=== PATIENT | female | born 1960 | race Two or more races ===

== ENCOUNTER → 2016-10-26 | Outpatient (CLI) | payer OTHER ==
[~2016-10-26] MED LIST: LIVALO4 MG PO; VALSARTAN-HCTZ1 EACH PO
== END | disposition short-term general hospital (02) ==
LOC: CLORTH 07:41
DX: M17.11 Unilateral primary osteoarthritis, right knee (principal); D36.13 Benign neoplasm of peripheral nerves and autonomic nervous system of lower limb, including hip; M25.562 Pain in left knee

== ENCOUNTER → 2016-11-09 | Outpatient (CLI) | payer OTHER | END | disposition short-term general hospital (02) | LOC: CLORTH 09:46 | DX: M17.11 Unilateral primary osteoarthritis, right knee (principal); M23.303 Other meniscus derangements, unspecified medial meniscus, right knee; M79.672 Pain in left foot | CPT/HCPCS: J1100; J2795 ==